=== PATIENT | female | born 1940 | race Caucasian/White ===

== ENCOUNTER 2018-11-21 05:33 | Inpatient (IN) ==
[2018-11-21] MEDS ORDERED: Sodium Chlor 0.9% Inj 73.07 ML, Ropivacaine 0.5% PF Inj 24.63 ML, Ketorolac Inj 30 MG, ... P-ARTICULR ONE ×5 (06:28)
[2018-11-21] MEDS ORDERED: Chlorhexidine 4% Topical 120 APPLIC/120 ML Bottle TOPICAL SCH (06:30)
[2018-11-21] MEDS ORDERED: Chlorhexidine Gluconate 2% 1 Pack (2 Cloths) TOPICAL ONE (06:30)
[2018-11-21] MEDS ORDERED: Metoprolol Tartrate 25 MG Tablet PO ONE (06:30)
[2018-11-21] MEDS ORDERED: Sodium Chlor 0.9% Inj 500 ML IV.CONT ONE (06:30)
[2018-11-21] MEDS ORDERED: Dexamethasone PF Inj 10 MG/ML Vial ONE (06:35)
[2018-11-21] MEDS ORDERED: Sodium Chlor 0.9% Inj 250 ML ONE (06:35)
[2018-11-21] MEDS ORDERED: Dexamethasone PF Inj 10 MG/ML Vial IV.PUSH SCH (06:45)
[2018-11-21] MEDS ORDERED: ceFAZolin 2 GM Premix Inj 2 GM/50 ML PIGGYBACK IV.SIG ONE (06:59)
[2018-11-21] MEDS ORDERED: HYDROmorphone PF Inj 1 MG/ML Ampul IV.PUSH PRN (07:00)
[2018-11-21] MEDS ORDERED: Bisacodyl 10 MG Supp RECTAL PRN (07:00)
[2018-11-21] MEDS ORDERED: Vancomycin Inj 1,000 MG in Sodium Chlor 0.9% Inj 250 ML IV.SIG SCH (07:00)
[2018-11-21] MEDS ORDERED: TRANEXAMIC ACID IV.SIG SCH (07:00)
[2018-11-21] MEDS ORDERED: Post-op Orders (for Pharmacy) OTHER STA (07:00)
[2018-11-21] MEDS ORDERED: Tranexamic Acid Inj 3,000 MG in Sodium Chlor 0.9% Inj 100 ML P-ARTICULR SCH (07:00)
[2018-11-21] MEDS ORDERED: SODIUM CHLOR 0.9% IV.SIG SCH (07:00)
[2018-11-21] MEDS ORDERED: Zolpidem Tartrate 5 MG Tablet PO PRN (07:00)
[2018-11-21] MEDS ORDERED: Bupivacaine Liposomal PF 1.3% Inj 20 ML Vial ONE (07:16)
[2018-11-21] MEDS ORDERED: Lidocaine PF 1% Inj 5 ML Syringe OTHER ONE (08:28)
[2018-11-21] MEDS ORDERED: Glycopyrrolate Inj 1 MG/5 ML Syringe IV.PUSH ONE (08:28)
[2018-11-21] MEDS ORDERED: Neostigmine Inj 5 MG/5 ML Syringe IV.PUSH ONE (08:28)
--- NOTE | 2018-11-21 10:15 | P.OP ---
Procedure: PREOPERATIVE DIAGNOSIS: Left knee osteoarthritis. POSTOPERATIVE DIAGNOSIS: Left knee osteoarthritis. PROCEDURE PERFORMED: Left total knee arthroplasty. SURGEON: Dr. Nawaf Nieves M.D. TYPECASTING MACHINE OPERATOR: BOBO Torres. ANESTHESIA: General with adductor canal femoral nerve block ESTIMATED BLOOD LOSS: 100 mL. COMPLICATIONS: None. IMPLANTS USED: Ynaiv triathlon size 6 posterior stabilized left femur [] Size 5 tibia baseplate [] size 13 polyethylene insert [] 35mm patella [] Tourniquet time 37 minutes at 300 mmHg Justification: The patient presents to the undersigned at [facility] with chief complaints of severe left knee pain. The pain is severe progressive and interferes with activities of daily living. The patient has failed greater than 3 months of nonoperative conservative treatment to include nonsteroidal anti-inflammatory medications, analgesic medications, physical therapy, cortisone injection, home exercise program, activity modification, ambulatory assistive aids, and weight loss. X-rays of the left knee reveal severe end- stage osteoarthritis with joint space narrowing, subchondral sclerosis, subchondral cysts, osteophyte formation, deformity with subluxation. The patient was counseled as to the risks, benefits, alternatives to a total knee arthroplasty. The risks were discussed which include but are not limited to, anesthesia, bleeding, infection, damage to nerves and blood vessels, continued pain, stiffness, failure of implants, blood clots, pulmonary embolism, and even . The patient's pain is severe and favors benefits over risk. The patient does wish to proceed with surgery as outlined above. Procedure in detail: Written consent has been obtained from the patient. The patient was identified and taken to the operating room. The patient was placed supine on the operating room table. General anesthesia was administered to the patient as well as an adductor canal femoral nerve block. The patient was administered preoperative IV antibiotic. A well-padded tourniquet was placed in the left thigh. The left lower extremity was prepped and draped using isopropyl alcohol , Hibiclens solution, and ChloraPrep solution. After a timeout was performed an Esmarch bandage was used to exsanguinate the left lower extremity. The tourniquet was inflated to 300 mmHg. A longitudinal incision was made over the anterior aspect of the left knee. A medial parapatellar arthrotomy was performed. The patella was everted. A patellar resection guide was used to assist with patellar resection. The patella drill guide was then placed to allow for 3 drill holes within the patella. The patella trial fit well. Attention was then turned to the femur where a intramedullary guide isidro was placed. The distal femoral guide was set to remove 10 mm of distal femur 5 degrees off the anatomic valgus axis alignment. An oscillating saw was used to perform the distal femoral cut. Attention was then turned to the tibia where extramedullary tibia guide was set to remove 5 mm off the lowest portion of the medial tibial plateau. The tibial guide was pinned in place and the tibial cut was performed. A 9 mm spacer block showed full extension. Attention was turned back to the femur with the AP sizing block used to assist with appropriate measurement and placement of the 3 degree external rotation AP cutting guide. The anterior, posterior and chamfer cuts were then performed. The PCL box guide was pinned in place and the PCL was boxed out with an oscillating saw. The medial and lateral meniscus remnants were removed as well as bone and soft tissue debris from the posterior portion of the knee. A tibia baseplate was then pinned in place and the tibia was drilled and punched. Trial components were evaluated and final components were then cemented in place. With the final components implanted the knee could achieve full extension to 0 degrees and flexion to 140, with no evidence of tibial liftoff. The testing of varus valgus balance appeared appropriate and symmetric with good stability. The patella was noted to track centrally. The tourniquet was deflated Bovie cautery was then used for hemostasis. The knee was then thoroughly irrigated with sterile saline pulse lavage antibiotic impregnated solution. The arthrotomy incision was closed with #1 Vicryl suture. The subcutaneous layer closed with 2-0 Vicryl suture. The skin incision was then closed with Dermabond. Sterile dressings were applied. The patient tolerated the procedure well with no intraoperative complications noted. Nawaf Ruvalcaba physician architectural administrative assistant certified was present during the entire procedure to include patient positioning and the procedure itself. The medical necessity of a physician architectural administrative assistant was indicated in this case due to the complexity of the procedure itself. He assisted with appropriate manipulation of the leg and also retraction of the muscle, tendon, bone and neurovascular structures. He assisted with preparation of bone and also implantation of the prosthetic replacement. There was a lead quality control technician within the room that was focused on handling of instruments but was not available to assist with the actual surgery itself. Surgeon: Nawaf Babcock MD
[2018-11-21] MEDS ORDERED: fentaNYL Citrate Inj 100 MCG/2 ML Ampul ONE (10:49)
[2018-11-21] MEDS ORDERED: *morphine SULFATE 4 MG/ML PERIprocedure ONLY ONE (10:49)
[2018-11-21] MEDS ORDERED: HYDROmorphone PF Inj 0.5 MG/0.5 ML Syringe ONE ×2 (10:58→11:47)
--- NOTE | 2018-11-21 11:31 | XR ---
EXAM DATE: 11/21/2018 11:26 AM EST AGE/SEX: 78 years / Female INDICATIONS: Post of left knee prosthesis. CLINICAL DATA: This is the patient's initial encounter. Patient reports that signs and symptoms have been present for 1 day and indicates a pain score of 10/10. MEDICAL/SURGICAL HISTORY: None. None. COMPARISON: No prior exams available for comparison. FINDINGS: Status post left knee prosthesis. There is good position and alignment of the knee prosthesis with th e bony structures. Postsurgical changes are noted. The bony structures are grossly intact. CONCLUSION: There is good position and alignment on this postoperative study. Electronically signed by: Meño Thakur MD Board Certified Radiologist 11/21/2018 11:29 AM EST
[2018-11-21] MEDS ORDERED: *Ondansetron Inj 4 MG/2 ML Vial PERIprocedural Use ONLY ONE (11:47)
[2018-11-21] MEDS: Multivitamin/Minerals Therapeutic Tablet PO SCH ×2 (12:06→20:55)
[2018-11-21] MEDS: Senna/Docusate Sodium 8.6/50 MG Tablet PO SCH ×2 (12:06→20:55)
[2018-11-21] MEDS: Clindamycin 900 mg/NS Premix 900 MG/50 ML PIGGYBACK IV.SIG SCH ×2 (15:11→21:39)
[2018-11-22] MEDS: Clindamycin 900 mg/NS Premix 900 MG/50 ML PIGGYBACK IV.SIG SCH (05:06)
[2018-11-22 05:21] LABS: Hematocrit 33.9 % (35.0-46.0); Hemoglobin 11.5 gm/dL (11.6-15.3)
--- NOTE | 2018-11-22 08:43 | P.PNOP ---
Subjective Interval history: pain tolerable Physical Exam Vital signs: Vital Signs 11/21/18 10:34 11/21/18 10:45 11/21/18 11:00 Temperature 97.4 F L Pulse Rate 80 69 70 Respiratory Rate 15 17 15 Blood Pressure 130/64 145/71 H 149/67 H Pulse Oximetry 96 96 96 11/21/18 11:15 11/21/18 11:30 11/21/18 12:00 Temperature Pulse Rate 75 73 74 Respiratory Rate 17 15 16 Blood Pressure 138/62 133/63 144/63 H Pulse Oximetry 98 98 99 11/21/18 12:30 11/21/18 13:00 11/21/18 13:30 Temperature Pulse Rate 70 69 69 Respiratory Rate 17 15 17 Blood Pressure 130/60 141/65 H 139/65 Pulse Oximetry 95 96 95 11/21/18 14:00 11/21/18 14:30 11/21/18 15:00 Temperature Pulse Rate 73 73 60 Respiratory Rate 17 15 15 Blood Pressure 115/59 L 117/65 112/54 L Pulse Oximetry 93 L 95 95 11/21/18 16:00 11/21/18 17:10 11/21/18 19:04 Temperature 97.4 F L 97.2 F L Pulse Rate 59 L 63 Respiratory Rate 17 15 18 Blood Pressure 119/61 112/55 L Pulse Oximetry 95 99 11/21/18 20:00 11/22/18 00:00 11/22/18 04:00 Temperature 98.6 F 98.2 F 97.9 F Pulse Rate 58 L 66 55 L Respiratory Rate 18 18 18 Blood Pressure 111/58 L 110/54 L 103/57 L Pulse Oximetry 96 95 95 Intake & Output 11/21/18 11/22/18 11/22/18 18:59 06:59 18:59 Intake Total 2044.2 / 2044.2 1300 / 1300 Output Total 500 / 500 Balance 1544.2 / 1544.2 1300 / 1300 Weight 94.5 kg 95.7 kg Intake: IV 464.2 / 464.2 1100 / 1100 LR 1000 mL Inj 1,000 ML @ 80 1000 / 1000 mls/hr IV.CONT .[id number] [facility] Rx# :[id number] Cleocin 900 mg/NS Premix 900 mg 50 / 50 100 / 100 In 50 ml @ 100 mls/hr IV.SIG Q8H [facility] Rx#:[id number] Cyklokapron Inj 1,420 MG In NS 114.2 / 114.2 Inj 100 ML @ 200 mls/hr IV.SIG ONCE [facility] Rx#:[id number] Vancomycin Inj 1,000 MG In NS 250 / 250 Inj 250 ML @ 250 mls/hr IV.SIG [employer] [facility] Rx#:[id number] Ancef 2 GM Premix Inj 2 gm In 50 / 50 50 ml @ 0 mls/hr IV.SIG .[facility] Rx#:[id number] Oral 480 / 480 200 / 200 Anesthesia Amount 1100 / 1100 Output: Urine 400 / 400 Estimated Blood Loss 100 / 100 Other: # Voids 1 1 Date of Last Bowel Movement 11/21/18 11/21/18 # Bowel Movements 0 Narrative: in bed, nad dressing c/d/i neg homacarson nvi Results - Labs CBC & Chem 7: 11/22/18 04:19 Laboratory Results - last 24 hr 11/22/18 04:19 Hgb 11.5 L Hct 33.9 L - Imaging Impressions Knee X-Ray 11/21/18 07:00 CONCLUSION: There is good position and alignment on this postoperative study. Assessment and Plan - Ortho Post Op Day # 1 - Assessment and Plan s/p L TKA wbat maintain dressing asa 81 d/c planning home with [facility] and pt - today or Wed pending progress in PT f/up dr. moreno 2 weeks
--- NOTE | 2018-11-22 08:44 | P.DCO ---
- Physical Therapy Physical Therapy: Gait training, Safety evaluation, Transfer training, bed to chair Knee: Total knee, Protocol: Left, Full weight bearing Left Lower Extremity Weight Bearing: Weight bearing as tolerated - Nursing RN days per week: 1 Nursing: Dressing changes - Case Management Consult Case Management Consult-Home Health: Yes - Certification Need for Home Health services: I have seen patient Simona Mercado on 11/22/18. My clinical findings support the need for the requested home health care services because: Need for Home Health Services: Limited ability to care for self, High risk of falls Homebound Certification: I certify that my clinical findings support that this patient is homebound because: Homebound Certification: Post-op weakness, Unsteady gait/balance
[2018-11-22] MEDS: Multivitamin/Minerals Therapeutic Tablet PO SCH ×2 (09:47→20:14)
[2018-11-22] MEDS: Senna/Docusate Sodium 8.6/50 MG Tablet PO SCH ×2 (09:48→20:14)
[2018-11-23] MEDS: Multivitamin/Minerals Therapeutic Tablet PO SCH (10:27)
[2018-11-23] MEDS: Senna/Docusate Sodium 8.6/50 MG Tablet PO SCH (10:28)
--- NOTE | 2018-11-23 15:17 | MD ---
cc: Nawaf Babcock MD DATE OF DISCHARGE: 11/23/2018 ADMITTING DIAGNOSIS: Severe degenerative osteoarthritis, left knee. DISCHARGE DIAGNOSIS: Severe degenerative osteoarthritis, left knee. HISTORY OF PRESENT ILLNESS: Ms. Mercado is a 78-year-old female who [facility] evaluation by Dr. Jens Babcock regarding severe and progressive left knee pain. The patient states the pain has been present for numerous years and is currently limiting her ability to ambulate safely. The patient states she has severe aching sensation with weightbearing activities. No alleviating factors. Although in the past she has tried medications, assistive devices, physical therapy, home exercise program, corticosteroid injection without relief of symptoms. She does have x-ray evidence of severe degenerative osteoarthritis of the left knee. While in the office, the patient was counseled on her diagnosis and treatment options. Risks, benefits, and indications discussed. The patient did elect to proceed with surgical intervention to include left total knee arthroplasty; date of surgery 11/21/2018, left total knee arthroplasty. POSTOPERATIVE: After surgery, the patient admitted to [facility] where she received appropriate medical management, pain control, DVT prophylaxis, as well as physical therapy. DISCHARGE: Once being discharged from the hospital, the patient has been cleared to go home where she will receive home health and home physical therapy. She is in stable condition. She may weight bear as tolerated. She has been instructed on wound care management. She has been provided prescriptions for pain control as well as DVT prophylaxis. She has also been provided a followup appointment in approximately 2 weeks from her date of surgery. The patient and the patient's son have asked appropriate questions, which have been answered. Patient is being discharged. Dictated by GRETA Torres Nawaf Babcock MD JWM/umer , 01:17 PM , 01:24 PM
== END 2018-11-23 12:35 | disposition home health service (06) | DRG 470 ==
LOC: HSDI 05:33 → N06 17:19
PROVIDERS: ADMIT Orthopaedic Surgery Sports Medicine; ATTEND Orthopaedic Surgery Sports Medicine
CPT/HCPCS: 73560; 85014; 85018; 86850; 86900; 86901; 94150; 94664; 97110; 97116; 97150; 97162; 97166; 97535; C1776; C9290; J0131; J0171; J0690; J0735; J1100; J1170; J1580; J1885; J2250; J2270; J2405; J2704; J2710; J2795; J3010; J3370; J7050; J7120; L1830